=== PATIENT | female | born 1950 | race Caucasian/White ===

== ENCOUNTER 2020-02-28 06:31 | Day surgery (SDC) | payer OTHER, SELFPAY ==
[~2020-02-28] VITALS: Ht 162.6 cm; Wt 56.7 kg
[2020-02-28] MEDS ORDERED: MIDAZOLAM 2 MG/2 ML VIAL ONE (07:46)
[2020-02-28] MEDS ORDERED: fentaNYL citrate 0.05 MG/ML VIAL ONE (07:46)
== END 2020-02-28 09:20 | disposition home or self-care (01) ==
LOC: MDS 06:31 → MMU 06:31 → MDS 09:20
PROVIDERS: ATTEND Internal Medicine Gastroenterology
DX: R14.0 Abdominal distension (gaseous) (principal); K21.9 Gastro-esophageal reflux disease without esophagitis; Z11.59 Encounter for screening for other viral diseases; I10 Essential (primary) hypertension; E78.00 Pure hypercholesterolemia, unspecified; Z90.89 Acquired absence of other organs; E66.9 Obesity, unspecified; Z79.899 Other long term (current) drug therapy; Z68.33 Body mass index [BMI] 33.0-33.9, adult
CPT/HCPCS: 43239; 88305; J2250; U0003; J3010